=== PATIENT | female | born 1960 | race Caucasian/White ===

== ENCOUNTER → 2017-11-19 | Outpatient (REF) ==
--- NOTE | 2017-11-19 10:44 | Diagnostic Imaging Report ---
INDICATION: Fall. COMPARISON: None. TECHNIQUE: Three views of the lumbar spine were obtained. FINDINGS: No acute fracture or osseous destructive process is seen. The vertebral body heights appear maintained. The pedicles appear intact. There is facet arthropathy in the lower lumbar spine, severe at L4-5 where there is mild grade I degenerative anterolisthesis. The alignment is otherwise unremarkable. There is disc space narrowing with mild spurring at L2-L3 and mild disc space narrowing at L4-L5 and L5-S1. The sacroiliac joints are unremarkable. IMPRESSION: 1. No acute fracture is suspected. 2. Degenerative changes as described. The findings are most severe at L4-L5 where there is grade I degenerative anterolisthesis. Dictated by: Dictated on workstation # [id number]
--- NOTE | 2017-11-19 10:52 | Diagnostic Imaging Report ---
PATIENT HISTORY: FALL WITH MULTIPLE CONTUSIONS. TECHNIQUE: Three views of the skull. COMPARISON: None. FINDINGS: No acute fracture is seen of the skull. No fluid levels are seen in the paranasal sinuses. IMPRESSION: No radiographic evidence of skull fracture. Dictated by: Dictated on workstation # [id number]
== END | disposition home or self-care (01) ==
LOC: OCC 10:09
PROVIDERS: ATTEND Family Medicine
CPT/HCPCS: 70250; 72100

== ENCOUNTER 2018-05-08 12:45 | Outpatient (CLI) | payer OTHER ==
[~2018-05-08] VITALS: Ht 165.1 cm; Wt 88.5 kg
[~2018-05-08 12:45] MED LIST: IBUP-1780 PO
== END 2018-05-08 13:21 ==
LOC: PREOP 12:45
PROVIDERS: ATTEND Surgery
DX: Z01.818 Encounter for other preprocedural examination (principal)

== ENCOUNTER 2018-05-13 07:35 | Day surgery (SDC) | payer BC, OTHER ==
[~2018-05-13] VITALS: Ht 165.1 cm; Wt 88.5 kg
[2018-05-13] MEDS ORDERED: LACTATED RINGERS 1,000 ML IV ONE (07:46)
[2018-05-13 08:09] VITALS: BP 118/79
[2018-05-13] MEDS ORDERED: MIDAZOLAM 2 MG/2 ML (VERSED) VIAL ONE (08:35)
[2018-05-13] MEDS ORDERED: PROPOFOL INJECTION 50 ML IV ONE (08:35)
--- NOTE | 2018-05-13 08:38 | Progress Note-Pre Operative ---
Pre-Operative Progress Note H&P Reviewed The H&P was reviewed, patient examined and no changes noted. Time Seen by Provider: 08:34 Date H&P Reviewed: May 13, 2018 Time H&P Reviewed: 08:35 Pre-Operative Diagnosis: screening colonoscopy JOLENE HERNANDEZ DO May 13, 2018 08:38
[2018-05-13] MEDS ORDERED: LACTATED RINGERS 1,000 ML IV SCH (09:00)
--- NOTE | 2018-05-13 09:27 | Progress Note-Post Operative ---
Post-Operative Progess Note Surgeon (s)/Expenditure Requisition Clerk (s) Surgeon JOLENE HERNANDEZ DO Expenditure Requisition Clerk: none Pre-Operative Diagnosis screening colonoscopy Post-Operative Diagnosis Polyps Diverticula Int Hemorrhoids Procedure & Operative Findings Date of Procedure 05/13/18 Procedure Performed/Findings Colon with snare Anesthesia Type IV sedation by REHABILITATION TECH Estimated Blood Loss Estimated blood loss (mL): scant Specimens/Packing Specimens Removed Descending colon polyp Sigmoid colon polyp x 2 JOLENE HERNANDEZ DO May 13, 2018 09:27
--- NOTE | 2018-05-13 09:28 | Endoscopy Discharge Instruct ---
Endo Procedure/Findings Findings 1.: Polyp 2.: Diverticulosis 3.: Internal Hemorrhoids Discharge Instructions - Activity: You might feel a little sleepy until tomorrow. This is due to the medicine you received to relax you. Until tomorrow, you should: NOT drive a car, operate machinery or power tools. NOT drink any alcoholic beverages. NOT make any important decisions or sign importortant papers. Do not return to work until tomorrow, unless otherwise instructed. Resume previous activities tomorrow. Diet: Start by taking liquids. If you tolerate liquids, advance to solid food. make an appointment for one week Instructions: 1.: Colonscopy in 3 years Notify Physician - If you experience excessive bleeding, unusual abdominal pain, fever, or chest pain, contact your doctor immediately. Follow-Up: - I have received and understand the above instructions and will call my doctor if I have any further questions. Patient Signature Date Nurse Signature Other (Relationship) JOLENE HERNANDEZ DO May 13, 2018 09:28
[2018-05-13 09:40] VITALS: BP 117/66
[2018-05-13 10:10] VITALS: BP 121/74
--- NOTE | 2018-05-13 10:22 | Anesthesia-General Post-Op ---
MAC Patient Condition Mental Status/LOC: Same as Preop Cardiovascular: Satisfactory Nausea/Vomiting: Absent Respiratory: Satisfactory Pain: Controlled Complications: Absent Post Op Complications Complications None Follow Up Care/Instructions Patient Instructions None needed. Anesthesiology Discharge Order Discharge Order Patient is doing well, no complaints, stable vital signs, no apparent adverse anesthesia problems. No complications reported per nursing. MELONIE AGRAWAL CRNA May 13, 2018 10:22
[2018-05-13 10:25] VITALS: BP 121/74
--- NOTE | 2018-05-13 23:22 | OPERATIVE REPORT ---
DATE OF SERVICE: PREOPERATIVE DIAGNOSIS: Screening colonoscopy. POSTOPERATIVE DIAGNOSES: 1. Colon polyps. 2. Diverticula. 3. Internal hemorrhoids. PROCEDURE: Colonoscopy with snare polypectomy. SURGEON: Diaz Romo DO. WAREHOUSE INVENTORY CLERK: None. ANESTHESIA: IV sedation by the INDUSTRIAL TECH INSTRUCTOR. SPECIMEN: Three polyps removed from descending and sigmoid colon. BLOOD LOSS: Scant. FLUIDS: Per anesthesia. POSTOPERATIVE CONDITION: Stable. INDICATION FOR PROCEDURE: The patient is a 57-year-old female who needed a screening colonoscopy. FINDINGS: The patient had one moderately sized polyp in descending colon and one moderately sized in the sigmoid and a large one in the sigmoid colon. They were removed and sent to pathology, also noted to have diverticula. PROCEDURE NOTE: After informed consent was obtained, the patient was brought to the endoscopy suite, placed in the bed in the left lateral decubitus position. She was administered IV sedation by the INDUSTRIAL TECH INSTRUCTOR who then monitored her vitals the entire time, heart rate, blood pressure and pulse ox and the scope was inserted, pushed in, noted a large polyp in the sigmoid colon. Elected to push pass out and get it on the way out. In the descending colon, saw another polyp, took a picture of this and then a snare polypectomy, suctioned this up, continued up, saw some diverticula, took picture of this and then pushed all the way to the cecum, took a picture of appendiceal orifice, noted ileocecal valve, then slowly withdrew the scope insufflating to look circumferentially at the ray looking at the cecum up the ascending colon to the hepatic flexure, then down the transverse colon, splenic flexure, into the descending colon and then down into the sigmoid. In the sigmoid, saw a large polyp, did a snare polypectomy of this and then saw another polyp, did another snare polypectomy. The larger one had to be suctioned into the scope, pulled the scope all the way out and had to put it back in and then finished off the colonoscopy by looking at the sigmoid colon and into the rectal vault. Retroflexed rectal vault, saw some internal hemorrhoids, took a picture of this. Also noted an external hemorrhoids, took a picture of this on the way out. The patient tolerated the procedure and recovered in the endoscopy suite. Job ID: [id number] DocumentID: [id number] Dictated Date: 05/13/2018 14:53:26 Seismometer Operator Date: 05/13/2018 23:21:59 Dictated By: DIAZ ROMO DO
== END 2018-05-13 10:25 | disposition home or self-care (01) ==
LOC: ENDO 07:35
PROVIDERS: ATTEND Surgery
DX: Z12.11 Encounter for screening for malignant neoplasm of colon (principal); D12.5 Benign neoplasm of sigmoid colon; D12.4 Benign neoplasm of descending colon; K57.30 Diverticulosis of large intestine without perforation or abscess without bleeding; K64.8 Other hemorrhoids; F17.210 Nicotine dependence, cigarettes, uncomplicated; I10 Essential (primary) hypertension; R19.7 Diarrhea, unspecified; R05 Cough; G62.9 Polyneuropathy, unspecified
CPT/HCPCS: 88305

== ENCOUNTER → 2018-06-24 | Outpatient (CLI) | payer BC ==
[~2018-06-24] MED LIST changes: +IOHEXOL 350 MG/ML 100 ML (OMNIPAQUE 350) VIAL IV ONE; +NS 100 ML (IVPB) BAG IV ONE; +RECEIVED CONTRAST (Hold Metformin) IV SCH
[2018-06-24 17:10] LABS: CREATININE SERUM 0.74 MG/DL (0.60-1.30)
--- NOTE | 2018-06-24 17:39 | Diagnostic Imaging Report ---
PROCEDURE: CT chest with contrast only. TECHNIQUE: Multiple contiguous axial images were obtained through the chest after administration of intravenous contrast. INDICATION: Shortness of breath and posterior chest pain. FINDINGS: There is a well-circumscribed round soft tissue density mass in the left upper lobe measuring 3.9 x 3.5 cm. There is some atelectasis at the medial segment of the right middle lobe. There is no hilar or mediastinal lymphadenopathy. There is no effusion or pneumothorax. There are some calcified granulomas in the spleen. IMPRESSION: Large soft tissue density left upper lobe mass. Differential considerations would include hamartoma but neoplasm cannot be excluded. Dictated by: Dictated on workstation # [id number]
== END ==
LOC: RAD 16:14
PROVIDERS: ATTEND Nurse Practitioner Family
DX: J98.4 Other disorders of lung (principal); R91.8 Other nonspecific abnormal finding of lung field; R06.02 Shortness of breath
CPT/HCPCS: 36415; 71260; 82565; 84520

== ENCOUNTER → 2018-07-15 | Outpatient (CLI) | payer BC ==
[~2018-07-15] MED LIST changes: -IBUP-1780 PO; -IOHEXOL 350 MG/ML 100 ML (OMNIPAQUE 350) VIAL IV ONE; -NS 100 ML (IVPB) BAG IV ONE; -RECEIVED CONTRAST (Hold Metformin) IV SCH; +RT-ALBUTEROL SULF 2.5 MG/3 ML PRE-MIX VIAL INH ONE; +RT-ALBUTEROL SULF 2.5 MG/3 ML PRE-MIX VIAL ONE
== END ==
LOC: RT 16:39
PROVIDERS: ATTEND Nurse Practitioner Family
DX: R06.89 Other abnormalities of breathing (principal); J98.4 Other disorders of lung; R06.00 Dyspnea, unspecified; Z72.0 Tobacco use
CPT/HCPCS: 94060; 94726; 94729

== ENCOUNTER → 2018-07-23 | Outpatient (CLI) | payer BC, OTHER ==
[~2018-07-23] MED LIST changes: +IBUP-1780 PO; -RT-ALBUTEROL SULF 2.5 MG/3 ML PRE-MIX VIAL INH ONE; -RT-ALBUTEROL SULF 2.5 MG/3 ML PRE-MIX VIAL ONE
--- NOTE | 2018-07-24 12:36 | Diagnostic Imaging Report ---
EXAMINATION: PET/CT. INDICATION: Lung mass. EXAMINATION: After intravenous administration of 12.68 mCi of F18-FDG, a series of overlapping emission and transmission PET images was obtained. In the coronal, transaxial and sagittal planes, the area imaged extended from the skull base through the upper thighs. FINDINGS: There are no prior PET/CT examinations available for comparison. The recent CT chest exam of 06/24/2018 did note a well-circumscribed 3.9 x 3.5 cm soft tissue density mass in the left upper lung. On this exam, that mass is again identified. The mass has a maximum SUV of 2.5. The well-circumscribed margin of this mass and the mixed density composition of the mass suggested that this may well represent a benign process. If previous exams are available, they would be helpful for comparison. If a tissue diagnosis is sought, then a CT-guided biopsy could be performed. However, as the mass is centrally located, the possibility of developing pneumothorax related to the biopsy certainly exists. If there is no intervention at this time, then a short-term (three-month) followup CT chest exam would be recommended for further study. There is no other hypermetabolic activity to suggest the presence of neoplasm. There is physiologic activity in the brain, the heart, the bowel, the kidneys, and the bladder. The CT images fail to show any sign of an acute abnormality. The gallbladder is surgically absent. There are a number of calcifications within the spleen. These are nonspecific but may be related to prior exposure to histoplasmosis. There is diverticulosis of the sigmoid and descending colon without evidence for acute diverticulitis. There is no obvious breast mass. According to our records, the patient has not had a mammogram since 2014. If the patient has had a recent (one year) mammogram elsewhere, then no further imaging will be necessary. If there has been no recent mammogram, then mammography should be obtained. IMPRESSION: 1. The large mass in the left upper lung seen on the recent CT chest exam shows only slightly hypermetabolic activity. Considerations and recommendations as above. 2. There is no other hypermetabolic focus to suggest the presence of neoplasm. 3. There is no acute abnormality visualized. 4. There is no obvious breast mass. Recommendations as above. 5. These results were discussed with Dr. Fredis Dexter. Dictated by: Dictated on workstation # [id number]
== END ==
LOC: RAD 08:55
PROVIDERS: ATTEND Internal Medicine Critical Care Medicine
DX: D73.89 Other diseases of spleen (principal); R91.8 Other nonspecific abnormal finding of lung field; K57.30 Diverticulosis of large intestine without perforation or abscess without bleeding; Z72.0 Tobacco use; Z90.49 Acquired absence of other specified parts of digestive tract

== ENCOUNTER → 2018-07-24 | Outpatient (CLI) | payer BC | LOC: PREOP 06:52 | PROVIDERS: ATTEND Internal Medicine Critical Care Medicine | DX: Z01.818 Encounter for other preprocedural examination (principal) ==

== ENCOUNTER 2018-07-25 07:54 | Day surgery (SDC) | payer BC ==
[~2018-07-25] VITALS: Ht 165.1 cm; Wt 88.5 kg
[2018-07-25] MEDS ORDERED: LIDOCAINE PF 2% 5 ML (XYLOCAINE) VIAL INJ ONE (07:55)
[2018-07-25] MEDS ORDERED: LIDOCAINE PF 1% 2 ML VIAL (OR ONLY) IJ ONE (07:55)
[2018-07-25 08:10] VITALS: BP 127/80
[2018-07-25] MEDS ORDERED: LACTATED RINGERS 1,000 ML IV PRN (08:14)
[2018-07-25] MEDS ORDERED: LACTATED RINGERS 1,000 ML IV ONE (08:17)
[2018-07-25] MEDS ORDERED: proPOfol 200 MG/20 ML (DIPRIVAN) VIAL IV ONE ×2 (08:44→09:21)
[2018-07-25] MEDS ORDERED: MIDAZOLAM 2 MG/2 ML (VERSED) VIAL ONE (08:45)
[2018-07-25] MEDS ORDERED: fentaNYL INJECTION 100 MCG/2 ML AMP ONE (08:45)
[2018-07-25 10:25] VITALS: BP 141/60
[2018-07-25 10:50] VITALS: BP 128/102
--- NOTE | 2018-07-25 10:58 | Diagnostic Imaging Report ---
INDICATION: Lung mass. FINDINGS: The heart size is normal. There is a well-circumscribed mass in left upper lobe. Lungs are otherwise clear. There is no pleural effusion or pneumothorax. The mediastinum is unremarkable. IMPRESSION: Well-circumscribed mass in the left upper lobe. No other acute cardiopulmonary abnormality. Dictated by: Dictated on workstation # [id number]
[2018-07-25 11:00] VITALS: BP 128/102
[2018-07-25 11:36] LABS: BODY FLUID SOURCE BRONCH LAVAGE
[2018-07-25 11:38] LABS: BF OTHER CELLS 19 %; BODY FLUID APPEARENCE MOD CLDY; BODY FLUID COLOR PALE RED; LYMPHOCYTES,BODY FLUID 5 %
--- NOTE | 2018-07-25 13:33 | Anesthesia-General Post-Op ---
General Patient Condition Mental Status/LOC: Same as Preop Cardiovascular: Satisfactory Nausea/Vomiting: Absent Respiratory: Satisfactory Pain: Controlled Complications: Absent Post Op Complications Complications None Follow Up Care/Instructions Patient Instructions None needed. Anesthesia/Patient Condition Patient Condition Patient is doing well, no complaints, stable vital signs, no apparent adverse anesthesia problems. No complications reported per nursing. LAUREN WALL CRNA Jul 25, 2018 13:33
--- NOTE | 2018-07-25 20:31 | Diagnostic Imaging Report ---
EXAMINATION: Fluoroscopy INDICATION: Bronchoscopy Fluoroscopic assistance was provided for Dr. Dexter during his bronchoscopy procedure. 22.6 seconds of fluoroscopy time was utilized. A single spot film of the left lung was obtained. IMPRESSION: Fluoroscopic assistance was provided for Dr. Dexter. Dictated by: Dictated on workstation # [id number]
== END 2018-07-25 11:00 | disposition home or self-care (01) ==
LOC: ENDO 07:54
PROVIDERS: ATTEND Internal Medicine Critical Care Medicine
DX: R91.1 Solitary pulmonary nodule (principal); J18.9 Pneumonia, unspecified organism; J44.0 Chronic obstructive pulmonary disease with (acute) lower respiratory infection; F17.210 Nicotine dependence, cigarettes, uncomplicated
CPT/HCPCS: 71045; 87015; 87070; 87101; 87116; 87205; 87206; 89051; 94640

== ENCOUNTER → 2018-10-29 | Outpatient (CLI) | payer BC ==
[2018-10-29 10:47] LABS: BUN/CREATININE RATIO 27; CREATININE SERUM 0.75 MG/DL (0.60-1.30); GFR ESTIMATED > 60
--- NOTE | 2018-10-29 14:07 | Diagnostic Imaging Report ---
PROCEDURE: CT chest with contrast only. TECHNIQUE: Multiple contiguous axial images were obtained through the chest after administration of intravenous contrast. Auto Exposure Controls were utilized during the CT exam to meet ALARA standards for radiation dose reduction. INDICATION: Left upper lobe lung mass. COMPARISON: Correlation is made with prior CT from 06/24/2018. FINDINGS: No axillary lymphadenopathy is detected. No definite hilar or mediastinal lymphadenopathy is seen. There is no pericardial or pleural fluid. Pulmonary parenchymal evaluation again demonstrates circumscribed mixed density mass in the left upper lobe which appears to contain macroscopic fat. This measures 4.8 x 4.2 cm compared with 4.5 x 4.0 cm on prior exam. No other parenchymal masses are seen. Upper abdomen is unremarkable. IMPRESSION: Circumscribed left upper lobe mass which appears to contain macroscopic fat and most suggestive of a hamartoma. This does measure 1-2 mm larger when compared with examination six months earlier. Very little change is reassuring and this is most likely owing to a benign etiology. Patient also underwent PET/CT study from June with findings suggestive of pulmonary hamartoma as well. Continued close followup is recommended to ensure stability. Dictated by: Dictated on workstation # [id number]
== END ==
LOC: RAD 09:56
PROVIDERS: ATTEND Nurse Practitioner Family
DX: R91.8 Other nonspecific abnormal finding of lung field (principal); R06.00 Dyspnea, unspecified
CPT/HCPCS: 36415; 71260; 82565; 84520

== ENCOUNTER → 2019-01-29 | Outpatient (CLI) | payer BC ==
[~2019-01-29] MED LIST changes: +HOLD METFORMIN - RECEIVED CONTRAST 20 ML VIAL IV SCH; +IOHEXOL 350 MG/ML 100 ML (OMNIPAQUE 350) VIAL IV ONE; +NS 100 ML (IVPB) BAG IV ONE
[2019-01-29 10:18] LABS: BUN/CREATININE RATIO 21; CREATININE SERUM 0.72 MG/DL (0.60-1.30); GFR ESTIMATED > 60
--- NOTE | 2019-01-29 12:03 | Diagnostic Imaging Report ---
PROCEDURE: CT chest with contrast only. TECHNIQUE: Multiple contiguous axial images were obtained through the chest after administration of intravenous contrast. Auto Exposure Controls were utilized during the CT exam to meet ALARA standards for radiation dose reduction. INDICATION: Lung mass. FINDINGS: The previous CT chest exam of 10/29/2018 noted a 4.8 x 4.2 cm circumscribed mass in the left upper lung. This was felt to represent a benign process such as a hamartoma. This area showed only slight hypermetabolic activity on the PET CT exam of 07/23/2018. On this study, the mass is again identified and now measures 4.4 x 5.0 cm. On the coronal images this mass now measures 4.4 cm as opposed to 4.1 cm on the prior study. Even though the mass has increased in size slightly it still has a generally benign appearance. A short-term (3 month) followup CT chest would be recommended for further evaluation. The overall appearance of the chest has not changed adversely otherwise. The heart size is stable and within normal limits. The aorta is not abnormally dilated and there is no sign of a dissection. The pulmonary arteries were not well opacified and consequently difficult to assess for a pulmonary embolus. There is no mediastinal or hilar adenopathy. The areas of diminished density within both lobes of the thyroid seen previously are again evident. There is no sign of failure, pneumonia or of a pleural effusion to indicate an acute abnormality. The sections through the upper abdomen show that the liver is of lower density than usually seen. This does suggest fatty metamorphosis. The gallbladder is surgically absent. The bone windows show no evidence for a fracture or for a destructive lesion. There is no obvious breast mass. According to our records, the patient has not had a mammogram since 2014. If the patient has had a recent (within one year) mammogram elsewhere, then no further imaging will be necessary. Otherwise mammography would be recommend for further evaluation. IMPRESSION: 1. The well-circumscribed mass in the left upper lung seen previously does measure slightly larger on this study. This is still most likely a benign process such as a hamartoma. Even so, a short-term (3 month) followup CT chest exam would be recommended for further evaluation. 2. There is no acute cardiopulmonary abnormality identified. 3. The appearance of the liver does suggest fatty metamorphosis. 4. There is no obvious breast mass. Recommendations as above. Dictated by: Dictated on workstation # [id number]
== END ==
LOC: RAD 09:39
PROVIDERS: ATTEND Nurse Practitioner Family
DX: J45.909 Unspecified asthma, uncomplicated (principal); J98.4 Other disorders of lung; R91.8 Other nonspecific abnormal finding of lung field; K76.89 Other specified diseases of liver; E07.89 Other specified disorders of thyroid; Z72.0 Tobacco use
CPT/HCPCS: 36415; 71260; 82565; 84520

== ENCOUNTER 2019-02-26 23:18 | Emergency (ER) | payer BC ==
[~2019-02-26] VITALS: Ht 165.1 cm; Wt 100.9 kg
[~2019-02-26 23:18] MED LIST changes: -HOLD METFORMIN - RECEIVED CONTRAST 20 ML VIAL IV SCH; -IOHEXOL 350 MG/ML 100 ML (OMNIPAQUE 350) VIAL IV ONE; -NS 100 ML (IVPB) BAG IV ONE
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
[2019-02-27 00:06] LABS: BASOPHILS % (AUTO) 0 % (0-10); EOSINOPHILS # (AUTO) 0.2 10^3/uL (0.0-0.3); EOSINOPHILS % (AUTO) 2 % (0-10); HEMATOCRIT 33 % (35-52); HEMOGLOBIN 10.6 G/DL (11.5-16.0); LYMPHOCYTES # (AUTO) 1.7 X 10^3 (1.0-4.0); LYMPHOCYTES % (AUTO) 27 % (12-44); MEAN CORPUSCULAR HEMOGLOBIN 29 PG (25-34); MEAN CORPUSCULAR HGB CONC 32 G/DL (32-36); MEAN CORPUSCULAR VOLUME 91 FL (80-99); MEAN PLATELET VOLUME 9.4 FL (7.4-10.4); MONOCYTES # (AUTO) 0.4 X 10^3 (0.0-1.0); MONOCYTES % (AUTO) 6 % (0-12); NEUTROPHILS # (AUTO) 4.2 X 10^3 (1.8-7.8); NEUTROPHILS % (AUTO) 65 % (42-75); PLATELET COUNT 304 10^3/uL (130-400); WHITE BLOOD COUNT 6.5 10^3/uL (4.3-11.0)
[2019-02-27 00:21] LABS: INR 0.9 (0.8-1.4); PROTHROMBIN TIME PATIENT 12.1 SEC (12.2-14.7)
[2019-02-27 00:29] LABS: ALANINE AMINOTRANSFERASE 22 U/L (0-55); ALBUMIN 4.3 GM/DL (3.2-4.5); ALKALINE PHOSPHATASE 94 U/L (40-136); BILIRUBIN,TOTAL 0.2 MG/DL (0.1-1.0); BUN/CREATININE RATIO 18; CALCIUM 9.5 MG/DL (8.5-10.1); CARBON DIOXIDE 25 MMOL/L (21-32); CHLORIDE 107 MMOL/L (98-107); CREATININE SERUM 0.77 MG/DL (0.60-1.30); GFR ESTIMATED > 60; GLUCOSE 102 MG/DL (70-105); POTASSIUM 3.7 MMOL/L (3.6-5.0); SODIUM 142 MMOL/L (135-145); TOTAL PROTEIN 7.3 GM/DL (6.4-8.2)
[2019-02-27] MEDS ORDERED: TRANEXAMIC ACID INJECTION 1,000 MG in NS (IVPB) 100 ML IV ONE (00:45)
[2019-02-27] MEDS ORDERED: NS 100 ML (IVPB) BAG IV ONE (00:45)
[2019-02-27] MEDS ORDERED: IOHEXOL 350 MG/ML 100 ML (OMNIPAQUE 350) VIAL IV ONE (00:45)
[2019-02-27] MEDS ORDERED: TRANEXAMIC ACID INJECTION 1,000 MG in NS (IVPB) 250 ML IV SCH (00:45)
[2019-02-27] MEDS ORDERED: HOLD METFORMIN - RECEIVED CONTRAST 20 ML VIAL IV SCH (00:45)
[2019-02-27 03:38] VITALS: BP 135/90
--- NOTE | 2019-02-27 04:11 | NUR ---
REPORT TO CINTHYA WITH [facility]. ALL PT BELONGINGS WITH PT ON TRANSFER TO [facility].
--- NOTE | 2019-02-27 07:17 | Diagnostic Imaging Report ---
PROCEDURE: CT angiography Chest TECHNIQUE: After intravenous administration of contrast, thin section axial CT angiography of the chest was performed. 3D MIP reconstructions were made. All CT scans use one or more of the following dose optimizing techniques: automated exposure control, MA and/or KvP adjustment based on a patient size and exam type, or iterative reconstruction. INDICATION: Hemoptysis COMPARISON: CT chest of 01/29/2019 and 06/24/2018 FINDINGS: Vasculature: No pulmonary emboli. No CT evidence of pulmonary hypertension or right ventricular strain. Thoracic aorta is normal in caliber. No aortic dissection or pseudoaneurysm. Heart and mediastinum: Visualized thyroid is normal. No supraclavicular, axillary, or intra-thoracic lymphadenopathy. Borderline enlarged bilateral hilar lymph nodes are unchanged and may relate to old granulomatous infection. The heart is normal in size without pericardial effusion. Pleura: No pleural effusion or pneumothorax. Lungs and airway: No endoluminal lesion in the trachea or central bronchi. Left upper lobe pulmonary mass continues to increase in size and now measures 5.3 x 4.5 cm (initially measured at 4.4 x 3.9 cm on the 06/24/2018 exam). There remains areas of gross fat within the mass. No new pulmonary mass or nodule. No consolidations. Upper abdomen: Allowing for the phase of contrast, no acute abnormality in the upper abdomen is seen. Musculoskeletal: No concerning osseous lesion. IMPRESSION: 1. No pulmonary emboli or features of acute aortic syndrome. 2. Left upper lobe pulmonary mass continues to enlarge. The mass contains areas of gross fat making hamartoma possibility, but the continued enlargement indicates neoplasm must be excluded. A liposarcoma metastasis or less likely primary pulmonary liposarcoma is of consideration. There is no invasion of the vasculature by the mass. 3. Findings are in general agreement with the preliminary report. Dictated by: Dictated on workstation # [id number]
== END 2019-02-27 04:11 | disposition short-term general hospital (02) ==
LOC: EDUNIT# 23:18 → ER 23:21
DX: R04.2 Hemoptysis (principal); R91.8 Other nonspecific abnormal finding of lung field; Z88.5 Allergy status to narcotic agent; Z87.891 Personal history of nicotine dependence; Z98.51 Tubal ligation status
CPT/HCPCS: 36415; 71275; 80053; 85025; 85610; 85730; 86850; 86900; 86901; 86920

== ENCOUNTER → 2019-05-15 | Outpatient (CLI) | payer BC ==
[~2019-05-15] MED LIST changes: +CATHETER FLUSH 10 ML SYR IV PRN; +HOLD METFORMIN - RECEIVED CONTRAST 20 ML VIAL IV SCH; +IOHEXOL 350 MG/ML 100 ML (OMNIPAQUE 350) VIAL IV ONE; +NS 100 ML (IVPB) BAG IV ONE
[2019-05-15 09:49] LABS: BUN/CREATININE RATIO 22; CREATININE SERUM 0.74 MG/DL (0.60-1.30); GFR ESTIMATED > 60
--- NOTE | 2019-05-15 10:47 | Diagnostic Imaging Report ---
EXAMINATION: CT Chest with intravenous contrast. TECHNIQUE: Multiple contiguous axial images were obtained through the chest after the uneventful administration of intravenous contrast. All CT scans use one or more of the following dose optimizing techniques: automated exposure control, MA and/or KvP adjustment based on a patient size and exam type, or iterative reconstruction. HISTORY: SOLITARY PULMONARY NODULE COMPARISON: 02/27/2019 FINDINGS: The left upper lobe pulmonary mass containing fat has increased in size now measuring 5.5 x 4.7 cm, previously 5.3 x 4.3 cm in February, 4.7 x 4.2 cm in October and 4.4 x 3.9 cm in May. The lungs are clear without edema or pneumonia. No pleural effusion or pneumothorax. Heart size is normal. No pericardial effusion. Aorta is normal in caliber. There is no axillary or supraclavicular lymphadenopathy. There is no mediastinal lymphadenopathy. Limited views of the upper abdomen show changes of cholecystectomy. There are no suspicious osseous lesions. IMPRESSION: 1. The left upper lobe fat-containing pulmonary mass continues to increase in size. While the vast majority of fat-containing pulmonary masses are hamartomas, the growth pattern of this lesion is highly unusual for a hamartoma. Much less common fat-containing pulmonary lesions would include germ cell tumors and liposarcoma. Biopsy is recommended as this lesion continues to grow and may represent a malignant process. Dictated by: Dictated on workstation # [id number]
== END ==
LOC: RAD 09:19
PROVIDERS: ATTEND Nurse Practitioner Family
DX: J98.4 Other disorders of lung (principal); J45.909 Unspecified asthma, uncomplicated; R91.1 Solitary pulmonary nodule; R06.89 Other abnormalities of breathing; Z72.0 Tobacco use
CPT/HCPCS: 36415; 71260; 82565; 84520

== ENCOUNTER → 2019-12-22 | Outpatient (CLI) | payer BC ==
[~2019-12-22] MED LIST changes: -CATHETER FLUSH 10 ML SYR IV PRN; -HOLD METFORMIN - RECEIVED CONTRAST 20 ML VIAL IV SCH; -IOHEXOL 350 MG/ML 100 ML (OMNIPAQUE 350) VIAL IV ONE; -NS 100 ML (IVPB) BAG IV ONE
== END ==
LOC: CARD 14:02
PROVIDERS: ATTEND Nurse Practitioner Family
DX: I35.1 Nonrheumatic aortic (valve) insufficiency (principal)
CPT/HCPCS: 93306

== ENCOUNTER → 2020-06-01 | Outpatient (CLI) | payer BC ==
--- NOTE | 2020-06-01 12:49 | Diagnostic Imaging Report ---
INDICATION: Routine screening. COMPARISON: 05/01/2018 and 04/27/2015. TECHNIQUE: 2D and 3D bilateral screening mammography was performed with CAD. FINDINGS: Scattered fibroglandular densities are identified bilaterally. Benign nodular densities in both breasts appear stable. There are scattered benign calcifications. No spiculated mass or malignant appearing microcalcifications are seen. The axillae are unremarkable. IMPRESSION: No mammographic features suspicious for malignancy are identified. ACR BI-RADS Category 2: Benign findings. Result letter will be mailed to the patient. Note: At least 10% of breast cancer is not imaged by mammography. Dictated by: Dictated on workstation # [id number]
== END ==
LOC: RAD 09:30
PROVIDERS: ATTEND Physician Assistant
DX: Z12.31 Encounter for screening mammogram for malignant neoplasm of breast (principal)
CPT/HCPCS: 77063; 77067

== ENCOUNTER 2022-10-22 19:18 | Emergency (ER) | payer BC ==
[~2022-10-22] VITALS: Ht 165.1 cm; Wt 104.3 kg
[2022-10-22 20:25] LABS: BASOPHILS % (AUTO) 0 % (0-10); EOSINOPHILS # (AUTO) 0.1 10^3/uL (0.0-0.3); EOSINOPHILS % (AUTO) 1 % (0-10); HEMATOCRIT 35 % (35-52); HEMOGLOBIN 11.5 g/dL (11.5-16.0); LYMPHOCYTES # (AUTO) 2.7 10^3/uL (1.0-4.0); LYMPHOCYTES % (AUTO) 26 % (12-44); MEAN CORPUSCULAR HEMOGLOBIN 30 pg (25-34); MEAN CORPUSCULAR HGB CONC 33 g/dL (32-36); MEAN CORPUSCULAR VOLUME 90 fL (80-99); MEAN PLATELET VOLUME 9.5 fL (9.0-12.2); MONOCYTES # (AUTO) 0.6 10^3/uL (0.0-1.0); MONOCYTES % (AUTO) 6 % (0-12); NEUTROPHILS # (AUTO) 6.8 10^3/uL (1.8-7.8); NEUTROPHILS % (AUTO) 66 % (42-75); PLATELET COUNT 341 10^3/uL (130-400); WHITE BLOOD COUNT 10.2 10^3/uL (4.3-11.0)
[2022-10-22 20:34] LABS: INR 0.9 (0.8-1.4); PROTHROMBIN TIME PATIENT 12.5 SEC (12.2-14.7)
[2022-10-22 20:37] LABS: FIBRIN DEGRADATION PRODUCTS 0.69 UG/ML (0.00-0.49)
[2022-10-22 20:43] LABS: ERYTHROCYTE SEDIMENTATION RATE 64 MM/HR (0-30)
--- NOTE | 2022-10-22 20:51 | Diagnostic Imaging Report ---
INDICATION: Hemoptysis. EXAMINATION: Single AP view of the chest was obtained. COMPARISON: Study of 07/25/2018. FINDINGS: There is surgical suture in the left apex with evidence of left rib resection. There is also air trapping in the upper lobe. Lungs are otherwise clear. There is no pneumothorax or significant pleural fluid. IMPRESSION: Surgical findings in the upper left hemithorax without acute abnormality detected. Dictated by: Dictated on workstation # [id number]
--- NOTE | 2022-10-22 20:53 | ED Respiratory ---
General Chief Complaint: Cough/Cold/Flu Symptoms Stated Complaint: COUGHING BLOOD Nursing Triage Note: PT AMBULATE TO ROOM 04 WITHOUT DIFFICULTY WITH C/O BLOOD TINGED SPUTUM X1 LAST NIGHT AND X1 AGAIN THIS EVENING. PT REPORTS TAKING 800MG IBUPROFEN TWICE PER DAY. Allergies and Home Medications Allergies Coded Allergies: codeine (Verified Allergy, Unknown, HIVES, 05/08/18) Patient Home Medication List Ibuprofen (Ibuprofen) 800 Mg Tablet, 800 MG PO BID PRN for PAIN-MILD, (Reported) Entered as Reported by: BENEDICT BUTCHER on 05/08/18 1238 Past Jcgvfzp-Ahympi-Swhjjs Hx Patient Social History Tobacco Use?: Yes Tobacco type used: Cigarettes Smoking Status: Current Everyday Smoker Smokeless Tobacco Frequency: Never a User Use of E-Cig and/or Vaping dev: No Use of E-Cig and/or Vaping Brennan: Never a User Substance use?: No Alcohol Use?: Yes Alcohol Frequency: Rarely Pt feels they are or have been: No Seasonal Allergies Seasonal Allergies: Yes Past Medical History Surgeries: Yes (wisdom teeth, carpal tunnel) Gallbladder, Tubal Ligation Respiratory: Yes (persistent cough, LEFT LUNG MASS, restrictive lung disease) Cardiac: No Neurological: No Genitourinary: No Gastrointestinal: Yes Chronic Diarrhea Musculoskeletal: Yes Arthritis Endocrine: No HEENT: No Cancer: No Psychosocial: No Integumentary: No Blood Disorders: No Physical Exam Vital Signs - First Documented 10/22/22 19:28 Temp 37.4 Pulse 90 Resp 17 B/P (MAP) 171/99 (123) O2 Delivery Room Air Capillary Refill : Less Than 3 Seconds Height: 5'5.00" Weight: 195lbs. 0.0oz. [id number]; 38.00 BMI Method: Progress/Results/Core Measures Suspected Sepsis SIRS Temperature: Pulse: 90 Respiratory Rate: 17 Laboratory Tests 10/22/22 20:16: White Blood Count 10.2 Blood Pressure 171 /99 Mean: 123 Laboratory Tests 10/22/22 20:16: Creatinine 1.01, INR Comment 0.9, Platelet Count 341, Total Bilirubin 0.3 Results/Orders Lab Results Laboratory Tests Test 10/22/22 19:56 10/22/22 20:16 Range/Units Influenza Type A (RT-PCR) Not Detected Not Detecte Influenza Type B (RT-PCR) Not Detected Not Detecte SARS-CoV-2 RNA (RT-PCR) Not Detected Not Detecte White Blood Count 10.2 4.3-11.0 10^3/uL Red Blood Count 3.88 3.80-5.11 10^6/uL Hemoglobin 11.5 11.5-16.0 g/dL Hematocrit 35 35-52 % Mean Corpuscular Volume 90 80-99 fL Mean Corpuscular Hemoglobin 30 25-34 pg Mean Corpuscular Hemoglobin Concent 33 32-36 g/dL Red Cell Distribution Width 13.1 10.0-14.5 % Platelet Count 341 130-400 10^3/uL Mean Platelet Volume 9.5 9.0-12.2 fL Immature Granulocyte % (Auto) 0 % Neutrophils (%) (Auto) 66 42-75 % Lymphocytes (%) (Auto) 26 12-44 % Monocytes (%) (Auto) 6 0-12 % Eosinophils (%) (Auto) 1 0-10 % Basophils (%) (Auto) 0 0-10 % Neutrophils # (Auto) 6.8 1.8-7.8 10^3/uL Lymphocytes # (Auto) 2.7 1.0-4.0 10^3/uL Monocytes # (Auto) 0.6 0.0-1.0 10^3/uL Eosinophils # (Auto) 0.1 0.0-0.3 10^3/uL Basophils # (Auto) 0.0 0.0-0.1 10^3/uL Immature Granulocyte # (Auto) 0.0 0.0-0.1 10^3/uL Erythrocyte Sedimentation Rate 64 H 0-30 MM/HR Prothrombin Time 12.5 12.2-14.7 SEC INR Comment 0.9 0.8-1.4 Activated Partial Thromboplast Time 32 24-35 SEC D-Dimer 0.69 H 0.00-0.49 UG/ML Sodium Level 141 135-145 MMOL/L Potassium Level 3.6 3.6-5.0 MMOL/L Chloride Level 104 98-107 MMOL/L Carbon Dioxide Level 24 21-32 MMOL/L Anion Gap 13 5-14 MMOL/L Blood Urea Nitrogen 20 H 7-18 MG/DL Creatinine 1.01 0.60-1.30 MG/DL Estimat Glomerular Filtration Rate 64 BUN/Creatinine Ratio 20 Glucose Level 104 70-105 MG/DL Calcium Level 9.6 8.5-10.1 MG/DL Corrected Calcium 9.4 8.5-10.1 MG/DL Magnesium Level 2.2 1.6-2.4 MG/DL Total Bilirubin 0.3 0.1-1.0 MG/DL Aspartate Amino Transf (AST/SGOT) 16 5-34 U/L Alanine Aminotransferase (ALT/SGPT) 19 0-55 U/L Alkaline Phosphatase 74 40-136 U/L C-Reactive Protein High Sensitivity 1.85 H 0.00-0.50 MG/DL B-Type Natriuretic Peptide 10.3 <100.0 PG/ML Total Protein 7.6 6.4-8.2 GM/DL Albumin 4.3 3.2-4.5 GM/DL My Orders Orders - NAVID CHILD DO Monitor-Rhythm Ecg Trace Only (10/22/22 19:41) Ed Iv/Invasive Line Start (10/22/22 19:50) Bnp Umu (10/22/22 19:50) Cbc With Automated Diff (10/22/22 19:50) Comprehensive Metabolic Panel (10/22/22 19:50) Hs C Reactive Protein (10/22/22 19:50) Fibrin Degradation Products (10/22/22 19:50) Magnesium (10/22/22 19:50) Protime With Inr (10/22/22 19:50) Partial Thromboplastin Time (10/22/22 19:50) Erythrocyte Sedimentation Rate (10/22/22 19:50) Chest 1 View, Ap/Pa Only (10/22/22 19:50) Covid 19 Inhouse Test (10/22/22 19:50) Influenza A And B By Pcr (10/22/22 19:50) Isolation Central Supply Req (10/22/22 19:50) Ct Neck (Soft Tissue) W (10/22/22 21:02) Ct Angio Chest W (R/O Pe) (10/22/22 21:02) Iohexol Injection (Omnipaque 350 Mg/Ml 1 (10/22/22 21:30) Received Contrast (Hold Metformin- Contr (10/22/22 21:30) Ns (Ivpb) (Sodium Chloride 0.9% Ivpb Bag (10/22/22 21:30) Medications Given in ED Current Medications Medications Dose Ordered Sig/Edy Route Start Time Stop Time Status Last Admin Dose Admin Iohexol 100 ml ONCE ONCE IV 10/22/22 21:30 10/22/22 21:32 DC 10/22/22 21:24 100 ML Sodium Chloride 100 ml ONCE ONCE IV 10/22/22 21:30 10/22/22 21:32 DC 10/22/22 21:24 40 ML Vital Signs/I&O 10/22/22 10/22/22 19:28 19:28 Temp 37.4 Pulse 90 Resp 17 B/P (MAP) 171/99 (123) O2 Delivery Room Air Room Air Capillary Refill : Less Than 3 Seconds Blood Pressure Mean: 123 Progress Note : Progress Note NO COUGH OR HEMOPTYSIS AT ANY TIME Diagnostic Imaging Comments CXR--PER RADIOLOGIST REPORT AT 2052-- COMPARISON: Study of 07/25/2018. FINDINGS: There is surgical suture in the left apex with evidence of left rib resection. There is also air trapping in the upper lobe. Lungs are otherwise clear. There is no pneumothorax or significant pleural fluid. IMPRESSION: Surgical findings in the upper left hemithorax without acute abnormality detected. CT NECK SOFT TISSUES--PER RADIOLOGIST REPORT AT 2156 FINDINGS: There is no evidence of nasopharyngeal or oropharyngeal abnormality. Great vessels in the neck are somewhat tortuous but otherwise unremarkable. There is nonspecific subcentimeter low density nodule in the left lobe of the thyroid gland. There is also dystrophic calcification lateral to the right lobe of the thyroid gland and internal carotid artery. This may be dystrophic and related to previous injury or surgery. There is no evidence of organized fluid collection. No radiopaque esophageal filling defect is identified. There is no evidence of pathologically enlarged adenopathy. Parotid and submandibular salivary glands are unremarkable. There is loss of cervical lordosis with mild diffuse cervical spondylosis. IMPRESSION: No evidence of acute abnormality. In particular, there is no evidence of radiopaque esophageal filling defect. CT CHEST ANGIOGRAM--PER RADIOLOGIST REPORT AT 2156 COMPARISON: 05/15/2019 FINDINGS: There is good opacification of the pulmonary arteries without intraluminal filling defect identified. The ascending thoracic aorta reaches 4 cm in diameter which is not appreciably changed. There is mild aortic atherosclerosis. There has been left thoracotomy with posterior left rib resection and interval resection of the left upper lobe mass seen on the previous study. Linear scarring remains in place. Otherwise, there is no evidence of new mass within either lung. There is no focal infiltrate. There is no significant pleural or pericardial effusion. No pathologically enlarged adenopathy is seen. Calcified granulomas are seen within the right hilum and spleen. Gallbladder is surgically absent. Subcentimeter low-density nodule is again identified in the left lobe of the thyroid gland. IMPRESSION: No evidence of pulmonary embolism or other acute abnormality in the thorax. There has been interval left thoracotomy with resection of left upper lobe pulmonary mass since the previous study. Reviewed: Reviewed by Me Departure Impression Primary Impression: REPORTED HEMOPTYSIS Disposition: HOME, SELF-CARE Condition: Stable Departure-Patient Inst. Decision time for Depature: 22:00 Referrals: [facility] (PCP/Family) Primary Care Physician Patient Instructions: Coughing up blood Add. Discharge Instructions: SOFT FOODS FOR THE NEXT FEW DAYS--AVOID ANY FOODS THAT REQUIRE CHEWING CONTINUE YOUR REGULAR MEDICATIONS PRESCRIBED FOLLOW UP WITH YOUR DR NEEDED RETURN TO ER IF SYMPTOMS WORSEN. All discharge instructions reviewed with patient and/or family. Voiced understanding. NAVID CHILD DO October 22, 2022 20:53
[2022-10-22 21:00] LABS: ALBUMIN 4.3 GM/DL (3.2-4.5); BILIRUBIN,TOTAL 0.3 MG/DL (0.1-1.0); CALCIUM 9.6 MG/DL (8.5-10.1); CREATININE SERUM 1.01 MG/DL (0.60-1.30); MAGNESIUM 2.2 MG/DL (1.6-2.4); POTASSIUM 3.6 MMOL/L (3.6-5.0); TOTAL PROTEIN 7.6 GM/DL (6.4-8.2)
[2022-10-22] MEDS ORDERED: IOHEXOL 350 MG/ML 100 ML (OMNIPAQUE 350) VIAL IV ONE (21:30)
[2022-10-22] MEDS ORDERED: NS 100 ML (IVPB) BAG IV ONE (21:30)
[2022-10-22] MEDS ORDERED: HOLD METFORMIN - RECEIVED CONTRAST 20 ML VIAL IV SCH (21:30)
--- NOTE | 2022-10-22 21:42 | Diagnostic Imaging Report ---
INDICATION: Throat pain and hemoptysis. TECHNIQUE: CTA of the thorax was performed after bolus intravenous administration of iodinated contrast. 3D reformatted images were produced. Automatic exposure controls were utilized to keep dose as low as reasonably achievable. COMPARISON: 05/15/2019 FINDINGS: There is good opacification of the pulmonary arteries without intraluminal filling defect identified. The ascending thoracic aorta reaches 4 cm in diameter which is not appreciably changed. There is mild aortic atherosclerosis. There has been left thoracotomy with posterior left rib resection and interval resection of the left upper lobe mass seen on the previous study. Linear scarring remains in place. Otherwise, there is no evidence of new mass within either lung. There is no focal infiltrate. There is no significant pleural or pericardial effusion. No pathologically enlarged adenopathy is seen. Calcified granulomas are seen within the right hilum and spleen. Gallbladder is surgically absent. Subcentimeter low-density nodule is again identified in the left lobe of the thyroid gland. IMPRESSION: No evidence of pulmonary embolism or other acute abnormality in the thorax. There has been interval left thoracotomy with resection of left upper lobe pulmonary mass since the previous study. Dictated by: Dictated on workstation # [id number]
--- NOTE | 2022-10-22 21:53 | Diagnostic Imaging Report ---
PROCEDURE: CT neck soft tissue with contrast. TECHNIQUE: Multiple contiguous axial images were obtained through the neck after the administration of contrast. Auto Exposure Controls were utilized during the CT exam to meet ALARA standards for radiation dose reduction. INDICATION: Hemoptysis and throat pain. FINDINGS: There is no evidence of nasopharyngeal or oropharyngeal abnormality. Great vessels in the neck are somewhat tortuous but otherwise unremarkable. There is nonspecific subcentimeter low density nodule in the left lobe of the thyroid gland. There is also dystrophic calcification lateral to the right lobe of the thyroid gland and internal carotid artery. This may be dystrophic and related to previous injury or surgery. There is no evidence of organized fluid collection. No radiopaque esophageal filling defect is identified. There is no evidence of pathologically enlarged adenopathy. Parotid and submandibular salivary glands are unremarkable. There is loss of cervical lordosis with mild diffuse cervical spondylosis. IMPRESSION: No evidence of acute abnormality. In particular, there is no evidence of radiopaque esophageal filling defect. Dictated by: Dictated on workstation # [id number]
[2022-10-22 22:08] VITALS: BP 137/96
== END 2022-10-22 22:08 | disposition home or self-care (01) ==
LOC: EDUNIT# 19:18 → ER 19:20
DX: R04.2 Hemoptysis (principal); F17.210 Nicotine dependence, cigarettes, uncomplicated; Z20.822 Contact with and (suspected) exposure to COVID-19
CPT/HCPCS: 36415; 70491; 71045; 71275; 80053; 83735; 83880; 85025; 85379; 85610; 85652; 85730; 86141; 87636; 93041

== ENCOUNTER → 2023-04-17 | Outpatient (CLI) | payer BC ==
--- NOTE | 2023-04-17 16:05 | Diagnostic Imaging Report ---
INDICATION: Routine screening. COMPARISON: 06/01/2020 and 05/01/2018. TECHNIQUE: 2D and 3D bilateral screening mammography was performed with CAD. FINDINGS: Scattered fibroglandular densities are identified bilaterally. The parenchymal pattern is stable. No mass or malignant-appearing microcalcifications are seen. There are scattered benign calcifications bilaterally. The axillae are unremarkable. IMPRESSION: No mammographic features suspicious for malignancy are identified. ACR BI-RADS Category 2: Benign findings. Result letter will be mailed to the patient. Note: At least 10% of breast cancer is not imaged by mammography. Dictated by: Dictated on workstation # [id number]
== END ==
LOC: RAD 09:08
PROVIDERS: ATTEND Student in an Organized Health Care Education/Training Program
DX: Z12.31 Encounter for screening mammogram for malignant neoplasm of breast (principal)
CPT/HCPCS: 77063; 77067

== ENCOUNTER → 2023-04-25 | Outpatient (CLI) | payer BC | END | disposition home or self-care (01) | LOC: PREOP 05:56 | PROVIDERS: ATTEND Surgery | DX: Z01.818 Encounter for other preprocedural examination (principal) ==